=== PATIENT | female | born 1995 | race Caucasian/White ===

== ENCOUNTER 2017-12-30 19:41 | Emergency (ER) | payer BC, OTHER ==
[~2017-12-30] VITALS: Ht 162.6 cm; Wt 64.8 kg
[2017-12-30 19:43] VITALS: TEMP 36.6; Ht 162.6 cm; Wt 64.8 kg
[2017-12-30] MEDS ORDERED: KETOROLAC TROMETHAMINE 30 MG/ML VIAL IV STA (20:32)
[2017-12-30] MEDS ORDERED: ONDANSETRON INJ 2 MG/ML 2 ML VIAL IV STA (20:32)
[2017-12-30] MEDS ORDERED: GI COCKTAIL PO STA (20:32)
[2017-12-30] MEDS ORDERED: SODIUM CHLORIDE 0.9% 500ML 500 ML IV STA (20:32)
[2017-12-30] MEDS ORDERED: OPTIRAY 320 IV PRN (20:45)
--- NOTE | 2017-12-30 20:57 | DIAGNOSTIC IMAGING REPORT ---
SINGLE VIEW CHEST CLINICAL HISTORY: Atypical chest pain. FINDINGS: An AP, portable, upright chest radiograph is obtained. No prior studies are available for comparison at the time of dictation. The examination is degraded by portable technique and patient rotation. The cardiomediastinal silhouette is unremarkable. The lungs and pleural spaces are clear. No pneumothorax is seen. The bony thorax is grossly intact. IMPRESSION: No active disease in the chest. Electronically signed by: John Gabriel M.D. 12/30/2017 8:56 PM Dictated Date/Time: 12/30/2017 8:56 PM
[2017-12-30 20:59] LABS: BASO % 0.5 %; BASO ABS # 0.03 K/uL (0-0.2); EOS % 0.8 %; EOS ABS # 0.05 K/uL (0-0.5); HEMATOCRIT 40.2 % (37-47); IG# 0.01 K/uL (0.00-0.02); LYMPH % 32.4 %; LYMPH ABS # 2.04 K/uL (1.2-3.4); MEAN CELL VOLUME 91.2 fL (80-100); MEAN CORPUSCULAR HEMOGLOBIN 31.7 pg (25-34); MEAN CORPUSCULAR HGB CONC 34.8 g/dl (32-36); MEAN PLATELET VOLUME 11.5 fL (7.4-10.4); MONO ABS # 0.63 K/uL (0.11-0.59); NEUT % 56.1 %; NEUT ABS # 3.54 K/uL (1.4-6.5); PLATELET COUNT 232 K/uL (130-400); RED CELL DISTRIBUTION WIDTH CV 12.5 % (11.5-14.5); RED CELL DISTRIBUTION WIDTH SD 41.8 fL (36.4-46.3)
[2017-12-30 21:02] LABS: ISTAT CREATININE 0.9 mg/dl (0.6-1.3); ISTAT IONIZED CALCIUM 1.16 mmol/l (1.12-1.32); ISTAT POTASSIUM 3.5 mEq/L (3.3-5.0)
[2017-12-30] MEDS ORDERED: PATIENT'S ALLERGY INFO NEEDS ENTERED SCH (21:15)
[2017-12-30 21:16] LABS: ALBUMIN 4.3 gm/dl (3.4-5.0); ALT/SGPT 21 U/L (12-78); AST/SGOT 12 U/L (15-37); BLOOD UREA NITROGEN 16 mg/dl (7-18); CALCIUM 9.6 mg/dl (8.5-10.1); CARBON DIOXIDE 25 mmol/L (21-32); CREATININE 0.96 mg/dl (0.60-1.20); GLUCOSE 83 mg/dl (70-99); LIPASE 187 U/L (73-393); POTASSIUM 3.5 mmol/L (3.5-5.1); SODIUM 137 mmol/L (136-145)
[2017-12-30 21:21] LABS: ALKALINE PHOSPHATASE 44 U/L (45-117)
[2017-12-30] MEDS ORDERED: LIDOCAINE HCL 2% VISC SOLN 20 ML UDC ONE (21:38)
[2017-12-30] MEDS ORDERED: ALUMINUM/MAGNESIUM SUSP 30 ML UDC ONE (21:38)
[2017-12-30] MEDS ORDERED: LIDOCAINE HCL 2% VISC SOLN 20 ML UDC PO ONE (21:43)
--- NOTE | 2017-12-30 21:43 | DIAGNOSTIC IMAGING REPORT ---
CT ANGIOGRAM OF THE CHEST CLINICAL HISTORY: Atypical chest pain. COMPARISON STUDY: Chest x-ray dated 12/30/2017. TECHNIQUE: Following the IV administration of 94 cc of Optiray 320, CT angiogram of the chest was performed from the upper abdomen to the thoracic inlet utilizing the pulmonary embolus protocol. Images are reviewed in the axial, sagittal, and coronal planes. 3-D MIPS images are created and assessed. IV contrast was administered without complication. A dose lowering technique was utilized adhering to the principles of ALARA. The examination is degraded by streak artifact from the left arm which could not be elevated above the chest. The examination is also degraded by motion artifact. CT DOSE: 495.69 mGy.cm FINDINGS: Thyroid: Imaged portions of the thyroid gland are normal in size and attenuation. Thoracic aorta: The thoracic aorta is normal in caliber and demonstrates standard 3-vessel arch anatomy. No dissection is seen. Pulmonary vasculature: The pulmonary trunk is normal in caliber. There are no filling defects identified in main or lobar pulmonary branches to suggest pulmonary embolus. Evaluation of the peripheral branches is severely compromised by motion artifact. Heart: The heart is normal in size and configuration, and without pericardial effusion. Lungs and pleural spaces: Evaluation of lung parenchyma is degraded by motion artifact. No airspace consolidation or pleural effusion is seen. The trachea and central airways are patent. Mediastinum: There is no mediastinal lymphadenopathy. Amarilis: Clear. Axillae: There is no axillary lymphadenopathy. Upper abdomen: Partially visualized upper abdominal viscera is within normal limits. Skeletal structures: No lytic or blastic bony lesions are seen. A tiny bone island is incidentally noted in the body of T12. IMPRESSION: 1. Streak and motion degraded examination. 2. There is no evidence of central pulmonary embolus in the main or lobar pulmonary arteries. Evaluation of the peripheral branches is significantly compromised by motion artifact. 3. The lungs are clear. Electronically signed by: John Gabriel M.D. 12/30/2017 9:41 PM Dictated Date/Time: 12/30/2017 9:38 PM
[2017-12-30] MEDS ORDERED: BCPILLS PO (21:44)
[2017-12-30] MEDS ORDERED: PRLSR20 PO (21:44)
[2017-12-30] MEDS ORDERED: METO5TAB2 PO (21:44)
[2017-12-30] MEDS ORDERED: SIMV10TA2 PO (21:44)
--- NOTE | 2017-12-30 21:55 | DIAGNOSTIC IMAGING REPORT ---
CT SCAN OF THE ABDOMEN AND PELVIS WITH IV CONTRAST CLINICAL HISTORY: Generalized abdominal pain. COMPARISON STUDY: No priors. TECHNIQUE: Following the IV administration of 94 cc of Optiray 320, CT scan of the abdomen and pelvis is performed from the lung bases to the proximal femora. Images are reviewed in the axial, sagittal, and coronal planes. IV contrast was administered without complication. A dose lowering technique was utilized adhering to the principles of ALARA. The examination is degraded by streak artifact from the left arm which could not be elevated above the abdomen as well as by motion artifact. FINDINGS: Lung bases: The heart is normal in size and without pericardial effusion. The lung bases are clear. Liver: The contrast-enhanced liver is normal in size, contour, and attenuation. There is no intrahepatic biliary ductal dilatation. The hepatic veins and portal veins are patent. Gallbladder: Unremarkable. Spleen: Normal in size and attenuation. Pancreas: Unremarkable. Adrenal glands: Unremarkable. Kidneys: The contrast enhanced kidneys are normal in size and without hydronephrosis. The kidneys enhance symmetrically. Abdominal vasculature: The abdominal aorta is normal in course and caliber. Bowel: The small bowel and colon are normal in course and caliber. The appendix is well-visualized and normal. Peritoneum: There is no intraperitoneal free air or abdominal ascites. Lymphadenopathy: None. Pelvic viscera: The bladder is decompressed and not well assessed. The uterus and adnexa are normal as visualized. Trace free fluid is noted in the cul-de-sac. Skeletal structures: No lytic or blastic lesions are seen. IMPRESSION: 1. No acute infectious or inflammatory findings identified in the abdomen or pelvis. 2. There is trace free fluid in the cul-de-sac, likely within physiologic limits. Electronically signed by: John Gabriel M.D. 12/30/2017 9:54 PM Dictated Date/Time: 12/30/2017 9:50 PM
[2017-12-30 22:19] VITALS: BP 118/68; PULSE 78; O2SAT 99
--- NOTE | 2017-12-30 22:38 | EMERGENCY ROOM VISIT NOTE ---
History Report prepared by Mirna: Arely Christiansen Under the Supervision of: Dr. Yang Guido D.O. First contact with patient: 20:23 Chief Complaint: OTHER COMPLAINT Stated Complaint: RAPID HEARTBEAT, MUSCLE SPASMS, REACTION TO MED History of Present Illness The patient is a 22 year old female who presents to the Emergency Room with complaints of worsening diffuse abdominal pain beginning [employer]. The patient states that she has been having diffuse abdominal pain intermittently for the past few weeks. She describes her pain as dull with occasional sharp pains. She reports a 10 lb weight loss since her symptoms began due to a loss of appetite. She followed up with GI and was placed on omeprazole about 1 week ago. She has been taking this medication as prescribed. The patient is scheduled to have an US of her gallbladder tomorrow. The patient states that her symptoms are occasionally worsened with eating, but not every time. She notes some chest pain and burning in her throat that seems to be improving since starting the omeprazole. This morning the patient was feeling well. This afternoon her symptoms returned and she states that her abdominal pain was worse than usual. She rates her current pain as a 5/10 in severity. She is still feeling nauseated. She also reports pain in the left side of her back for the past couple of days. She is also concerned that she might be having an allergic reaction to the omeprazole due to recent muscle spasms that she has been experiencing. Pt denies headache, change in vision, fevers, shortness of breath , vomiting, diarrhea, urinary symptoms, melena, and any abnormal vaginal bleeding or discharge. Her LNMP was 3 weeks ago. Pt denies any personal cardiac history, any history of sudden in her family, and any personal history of cancer. Patient denies swelling of calves, recent trips, history of immobilization or recent surgery, prior history of DVT, hemoptysis, history of malignancy, history of smoking. She does take control. Source of History: patient Onset: SEC[employer] FLOOR [employer]ATOR Position: abdomen (diffuse) Symptom Intensity: 5/10 Quality: sharp, dull Timing: worsening Modifying Factors (Worsening): eating Associated Symptoms: + chest pain, + nausea, + back pain, No fevers, No headache, No SOB, No vomiting, No melena, No diarrhea, No urinary symptoms Note: Pt notes loss of appetite. Review of Systems See HPI for pertinent positives & negatives. A total of 10 systems reviewed and were otherwise negative. Past Medical & Surgical Medical Problems: (1) Hyperlipidemia Surgical Problems: (1) H/O wisdom tooth extraction Family History Cancer Heart disease Hypertension Kidney disease Kidney stones Social History Smoking Status: Never Smoker Smokeless Tobacco Use: No Alcohol Use: none Marital Status: in relationship Housing Status: lives with significant other Occupation Status: employed Current/Historical Medications Scheduled Control Pills ( Control Pills), 1 TAB PO QPM Metoclopramide Hcl (Metoclopramide Hcl), 5 MG PO TID Omeprazole (Prilosec), 20 MG PO QAM Simvastatin (Zocor), 10 MG PO QPM Allergies Coded Allergies: Amoxicillin (Verified Allergy, Mild, "I don't like it.", 12/30/17) Physical Exam Vital Signs Date Time Temp Pulse Resp B/P (MAP) Pulse Ox O2 Delivery O2 Flow Rate FiO2 12/30/17 22:19 78 20 118/68 99 12/30/17 21:33 91 18 125/70 99 Room Air 12/30/17 19:43 36.6 102 18 120/75 99 Room Air Physical Exam GENERAL: Sitting up in bed, alert, well appearing, well nourished, no distress, non-toxic EYE EXAM: normal conjunctiva. OROPHARYNX: no exudate, no erythema, lips, buccal mucosa, and tongue normal and mucous membranes are moist NECK: supple, no nuchal rigidity, no adenopathy, non-tender LUNGS: Clear to auscultation. Normal chest wall mechanics HEART: no murmurs, S1 normal and S2 normal ABDOMEN: abdomen soft, non-tender, normo-active bowel sounds, no masses, no rebound or guarding. BACK: Back is symmetrical on inspection and there is no deformity, no midline tenderness, no CVA tenderness. SKIN: no rashes and no bruising UPPER EXTREMITIES: upper extremities are grossly normal. LOWER EXTREMITIES: No pitting edema. Calves are equal bilaterally. NEURO EXAM: Normal sensorium, cranial nerves II-XII grossly intact, normal speech, no gross weakness of arms, no gross weakness of legs. Medical Decision & Procedures ER Provider Diagnostic Interpretation: Radiology results as stated below per my review and the radiologist's interpretation: SINGLE VIEW CHEST CLINICAL HISTORY: Atypical chest pain. FINDINGS: An AP, portable, upright chest radiograph is obtained. No prior studies are available for comparison at the time of dictation. The examination is degraded by portable technique and patient rotation. The cardiomediastinal silhouette is unremarkable. The lungs and pleural spaces are clear. No pneumothorax is seen. The bony thorax is grossly intact. IMPRESSION: No active disease in the chest. Electronically signed by: John Gabriel M.D. 12/30/2017 8:56 PM Dictated Date/Time: 12/30/2017 8:[address] SCAN OF THE ABDOMEN AND PELVIS WITH IV CONTRAST CLINICAL HISTORY: Generalized abdominal pain. COMPARISON STUDY: No priors. TECHNIQUE: Following the IV administration of 94 cc of Optiray 320, CT scan of the abdomen and pelvis is performed from the lung bases to the proximal femora. Images are reviewed in the axial, sagittal, and coronal planes. IV contrast was administered without complication. A dose lowering technique was utilized adhering to the principles of ALARA. The examination is degraded by streak artifact from the left arm which could not be elevated above the abdomen as well as by motion artifact. FINDINGS: Lung bases: The heart is normal in size and without pericardial effusion. The lung bases are clear. Liver: The contrast-enhanced liver is normal in size, contour, and attenuation. There is no intrahepatic biliary ductal dilatation. The hepatic veins and portal veins are patent. Gallbladder: Unremarkable. Spleen: Normal in size and attenuation. Pancreas: Unremarkable. Adrenal glands: Unremarkable. Kidneys: The contrast enhanced kidneys are normal in size and without hydronephrosis. The kidneys enhance symmetrically. Abdominal vasculature: The abdominal aorta is normal in course and caliber. Bowel: The small bowel and colon are normal in course and caliber. The appendix is well-visualized and normal. Peritoneum: There is no intraperitoneal free air or abdominal ascites. Lymphadenopathy: None. Pelvic viscera: The bladder is decompressed and not well assessed. The uterus and adnexa are normal as visualized. Trace free fluid is noted in the cul-de-sac. Skeletal structures: No lytic or blastic lesions are seen. IMPRESSION: 1. No acute infectious or inflammatory findings identified in the abdomen or pelvis. 2. There is trace free fluid in the cul-de-sac, likely within physiologic limits. Electronically signed by: John Gabriel M.D. 12/30/2017 9:54 PM Dictated Date/Time: 12/30/2017 9:[address] ANGIOGRAM OF THE CHEST CLINICAL HISTORY: Atypical chest pain. COMPARISON STUDY: Chest x-ray dated 12/30/2017. TECHNIQUE: Following the IV administration of 94 cc of Optiray 320, CT angiogram of the chest was performed from the upper abdomen to the thoracic inlet utilizing the pulmonary embolus protocol. Images are reviewed in the axial, sagittal, and coronal planes. 3-D MIPS images are created and assessed. IV contrast was administered without complication. A dose lowering technique was utilized adhering to the principles of ALARA. The examination is degraded by streak artifact from the left arm which could not be elevated above the chest. The examination is also degraded by motion artifact. CT DOSE: 495.69 mGy.cm FINDINGS: Thyroid: Imaged portions of the thyroid gland are normal in size and attenuation. Thoracic aorta: The thoracic aorta is normal in caliber and demonstrates standard 3-vessel arch anatomy. No dissection is seen. Pulmonary vasculature: The pulmonary trunk is normal in caliber. There are no filling defects identified in main or lobar pulmonary branches to suggest pulmonary embolus. Evaluation of the peripheral branches is severely compromised by motion artifact. Heart: The heart is normal in size and configuration, and without pericardial effusion. Lungs and pleural spaces: Evaluation of lung parenchyma is degraded by motion artifact. No airspace consolidation or pleural effusion is seen. The trachea and central airways are patent. Mediastinum: There is no mediastinal lymphadenopathy. Amarilis: Clear. Axillae: There is no axillary lymphadenopathy. Upper abdomen: Partially visualized upper abdominal viscera is within normal limits. Skeletal structures: No lytic or blastic bony lesions are seen. A tiny bone island is incidentally noted in the body of T12. IMPRESSION: 1. Streak and motion degraded examination. 2. There is no evidence of central pulmonary embolus in the main or lobar pulmonary arteries. Evaluation of the peripheral branches is significantly compromised by motion artifact. 3. The lungs are clear. Electronically signed by: John Gabriel M.D. 12/30/2017 9:41 PM Dictated Date/Time: 12/30/2017 9:38 PM Laboratory Results 12/30/17 20:45 Red Blood Count 4.41, Mean Corpuscular Volume 91.2, Mean Corpuscular Hemoglobin 31.7, Mean Corpuscular Hemoglobin Concent 34.8, Mean Platelet Volume 11.5, Neutrophils (%) (Auto) 56.1, Lymphocytes (%) (Auto) 32.4, Monocytes (%) (Auto) 10.0, Eosinophils (%) (Auto) 0.8, Basophils (%) (Auto) 0.5, Neutrophils # (Auto ) 3.54, Lymphocytes # (Auto) 2.04, Monocytes # (Auto) 0.63, Eosinophils # (Auto ) 0.05, Basophils # (Auto) 0.03 12/30/17 20:45 Test 12/30/17 20:45 12/30/17 20:50 12/30/17 20:51 12/30/17 21:30 White Blood Count 6.30 K/uL (4.8-10.8) Red Blood Count 4.41 M/uL (4.2-5.4) Hemoglobin 14.0 g/dL (12.0-16.0) Hematocrit 40.2 % (37-47) Mean Corpuscular Volume 91.2 fL (80-100) Mean Corpuscular Hemoglobin 31.7 pg (25-34) Mean Corpuscular Hemoglobin Concent 34.8 g/dl (32-36) Platelet Count 232 K/uL (130-400) Mean Platelet Volume 11.5 fL (7.4-10.4) Neutrophils (%) (Auto) 56.1 % Lymphocytes (%) (Auto) 32.4 % Monocytes (%) (Auto) 10.0 % Eosinophils (%) (Auto) 0.8 % Basophils (%) (Auto) 0.5 % Neutrophils # (Auto) 3.54 K/uL (1.4-6.5) Lymphocytes # (Auto) 2.04 K/uL (1.2-3.4) Monocytes # (Auto) 0.63 K/uL (0.11-0.59) Eosinophils # (Auto) 0.05 K/uL (0-0.5) Basophils # (Auto) 0.03 K/uL (0-0.2) RDW Standard Deviation 41.8 fL (36.4-46.3) RDW Coefficient of Variation 12.5 % (11.5-14.5) Immature Granulocyte % (Auto) 0.2 % Immature Granulocyte # (Auto) 0.01 K/uL (0.00-0.02) Est Creatinine Clear Calc Drug Dose 78.1 ml/min Estimated GFR () 95.9 Estimated GFR (Non- 82.8 BUN/Creatinine Ratio 17.1 (10-20) Calcium Level 9.6 mg/dl (8.5-10.1) Total Bilirubin 0.9 mg/dl (0.2-1) Direct Bilirubin 0.2 mg/dl (0-0.2) Aspartate Amino Transf (AST/SGOT) 12 U/L (15-37) Alanine Aminotransferase (ALT/SGPT) 21 U/L (12-78) Alkaline Phosphatase 44 U/L (45-117) Troponin I < 0.015 ng/ml (0-0.045) Total Protein 8.0 gm/dl (6.4-8.2) Albumin 4.3 gm/dl (3.4-5.0) Lipase 187 U/L (73-393) Bedside D-Dimer > 450 ng/mlFEU (0-450) Bedside Hemoglobin 14.3 g/dl (12.0-16.0) Bedside Hematocrit 42 % (37-47) Bedside Sodium 141 mEq/L (135-144) Bedside Potassium 3.5 mEq/L (3.3-5.0) Bedside Chloride 102 mEq/L (101-112) Bedside Total CO2 24 mEq/l (24-31) Anion Gap 19.0 mmol/L (16-25) Bedside Blood Urea Nitrogen 18 mg/dl (7-18) Bedside Creatinine 0.9 mg/dl (0.6-1.3) Bedside Glucose (other) 86 mg/dl (70-99) Bedside Ionized Calcium (Indu) 1.16 mmol/l (1.12-1.32) Urine Color YELLOW Urine Appearance CLEAR (CLEAR) Urine pH 5.5 (4.5-7.5) Urine Specific [place] 1.025 (1.000-1.030) Urine Protein NEG (NEG) Urine Glucose (UA) NEG (NEG) Urine Ketones 3+ (NEG) Urine Occult Blood NEG (NEG) Urine Nitrite NEG (NEG) Urine Bilirubin NEG (NEG) Urine Urobilinogen NEG (NEG) Urine Leukocyte Esterase NEG (NEG) Urine WBC (Auto) 1-5 /hpf (0-5) Urine RBC (Auto) 5-10 /hpf (0-4) Urine Hyaline Casts (Auto) 1-5 /lpf (0-5) Urine Epithelial Cells (Auto) 20-30 /lpf (0-5) Urine Bacteria (Auto) NEG (NEG) Urine Test NEG (NEG) Laboratory results per my review. Medications Administered Medications (Trade) Dose Ordered Sig/Ford Route Start Time Stop Time Status Last Admin Dose Admin Sodium Chloride 500 ml @ 999 mls/hr Q31M STAT IV 12/30/17 20:32 12/30/17 21:02 DC 12/30/17 21:43 999 MLS/HR Ketorolac Tromethamine (Toradol Inj) 30 mg NOW STAT IV 12/30/17 20:32 12/30/17 20:35 DC 12/30/17 21:44 30 MG Ondansetron HCl (Zofran Inj) 4 mg NOW STAT IV 12/30/17 20:32 12/30/17 20:35 DC 12/30/17 21:44 4 MG Lidocaine HCl (Viscous Lidocaine 2% Soln) 20 ml STK-MED ONCE .ROUTE 12/30/17 21:38 12/30/17 21:39 DC 12/30/17 21:44 20 ML Al Hydroxide/Mg Hydroxide (Maalox Susp) 30 ml STK-MED ONCE .ROUTE 12/30/17 21:38 12/30/17 21:39 DC 12/30/17 21:44 30 ML Lidocaine HCl (Viscous Lidocaine 2% Soln) 10 ml ONE ONCE PO 12/30/17 21:43 12/30/17 21:44 DC 12/30/17 21:43 10 ML ECG Indication: chest pain Rate (beats per minute): 72 Rhythm: normal sinus Findings: no ectopy, other (normal axis) Change: Patient's electrocardiogram interpreted by me. ED Course ED COURSE: Vital signs were reviewed and showed tachycardic. The patients medical record was reviewed The above diagnostic studies were performed and reviewed. ED treatments and interventions as stated above. 2022: The patient was evaluated in room C11B. A complete history and physical examination was performed. 2031: Zofran 4 mg IV, Toradol 30 mg IV, NSS 500 ml @ 999 mls/hr IV, GI Cocktail 24 ml PO 2114: I updated the patient on her results. 2127: I went to reevaluate the patient and she was at CT. 2205: Upon reevaluation, the patient is feeling better and resting comfortably. I discussed my findings with the patient and she understands and agrees with the treatment plan. Based on the patients age, coexisting illnesses, exam and lab findings the decision to treat as an outpatient was made. The patient remained stable while under my care. The patient appeared well at the time of discharge. Medical Decision Differential diagnoses includes but is not limited to gastritis, peptic ulcer disease, GERD, gallbladder disease, pancreatitis, small bowel obstruction, acute coronary syndrome, pericarditis, ischemic bowel, irritable bowel disease, irritable bowel syndrome, appendicitis, diverticulitis, malignancy, hernia, urinary tract infection, torsion, /ectopic , perforation, trauma, infectious. Patient is a 22-year-old female who presents to ER for abdominal pain which has been present for the past 2 weeks. She notes it comes and goes and is intermittently sharp versus dull in multiple different locations. There is no specific inciting incident exception of some times when she drinks dairy. She is following with GI. Recent was started on omeprazole. She had a cramp in her leg and questioned whether this was related to PPI. She did have some chest pain which she describes as a burning. No cardiac risk factors. Does take estrogen and was slightly tachycardic. D-dimer was obtained and elevated. CT PE along with a CT Abdomen and Pelvis Was Performed. Both Negative. EKG Was Unremarkable. Troponin Was Negative with Pain Greater Than 8 Hours As Her Pain Has Been Present for Days. Pain Is Slightly Improved with Omeprazole. CBC all BMP, LFTs, bilirubin and lipase is unremarkable. UA was negative. negative. Patient was updated bedside. She is discharged follow-up with PCP and GI as an outpatient. Discussed with Pt concerning signs and symptoms to watch out for. Pt was instructed to follow up with their PCP and discussed with the patient their option to return to the ED at anytime for persistent or worsening symptoms. The appropriate anticipatory guidance and out- patient management, including indications for return to the emergency department , were explained at length to the patient and understood. Medication Reconcilliation Current Medication List: was personally reviewed by me Blood Pressure Screening Patient's blood pressure: Normal blood pressure Impression Primary Impression: Abdominal pain Additional Impression: Chest pain Scribe Attestation The scribe's documentation has been prepared under my direction and personally reviewed by me in its entirety. I confirm that the note above accurately reflects all work, treatment, procedures, and medical decision making performed by me. Departure Information Dispostion Home / Self-Care Referrals No Doctor, Assigned (PCP) Forms HOME CARE DOCUMENTATION FORM, IMPORTANT VISIT INFORMATION, WORK / SCHOOL INSTRUCTIONS Patient Instructions Abdominal Pain - [facility], Chest Pain - [facility], My [facility] Additional Instructions Please follow up with your primary care doctor with in the next 24 hours. Any worsening of your symptoms, please return to the ED immediately. This includes any fevers greater than 100.4, worsening pain, chest pain, shortness breath, persistent nausea, vomiting, unable to eat or drink, or any other concerning signs or symptoms from your standpoint. Please keep your appointment with GI. You can discuss tomorrow restarting omeprazolewith your GI physician as I do not believe that this has any relevance to your symptoms. Problem Qualifiers Primary Impression: Abdominal pain Abdominal location: unspecified location Qualified Codes: R10.9 - Unspecified abdominal pain Additional Impression: Chest pain Chest pain type: unspecified Qualified Codes: R07.9 - Chest pain, unspecified
== END 2017-12-30 22:20 | disposition home or self-care (01) ==
LOC: C.EDB 19:43 → C.EDC 22:20
DX: R10.9 Unspecified abdominal pain (principal); R07.9 Chest pain, unspecified; E78.5 Hyperlipidemia, unspecified; Z79.3 Long term (current) use of hormonal contraceptives; Z80.9 Family history of malignant neoplasm, unspecified; Z82.49 Family history of ischemic heart disease and other diseases of the circulatory system; Z84.1 Family history of disorders of kidney and ureter